=== PATIENT | female | born 1975 | race Caucasian/White ===

== ENCOUNTER 2023-08-07 06:41 | Day surgery (SDC) | payer BC, SELFPAY ==
[2023-08-07 07:00] VITALS: BP 130/87; PULSE 70; RESP 18; TEMP 36.3; O2SAT 97; BMI 31.0
[2023-08-07] MEDS: sodium chloride 0.9% 1,000 ML 30 ML IV (07:05)
[2023-08-07 07:11] LABS: OR HCG Qualitative Urine Negative (Negative)
--- NOTE | 2023-08-07 07:26 | ANES.PREANE2 ---
Pre-Anesthetic Assessment Height/Weight: Height 1.7 m Weight 89.811 kg Temp Pulse Resp BP Pulse Ox O2 Del Method 97.3 F L 70 18 130/87 97 Room Air 08/07/23 07:00 08/07/23 07:00 08/07/23 07:00 08/07/23 07:00 08/07/23 07:00 08/07/23 07:00 Preop Diagnosis: Screening Operation Date: 08/07/23 07:45 Proposed Procedures p Colonoscopy(Not Applicable) - Elías Molina DO Familial anesthetic complications: none Was Beta Kasey taken within 24 hours: N/A Was Clonidine taken within 24 hours: N/A Last intake: Intake Last Liquid Date 08/06/23 Last Liquid Time 23:55 Last Solid Date 08/05/23 Last Solid Time 18:30 Social No alcohol and No tobacco Exam alert, oriented x 3, clear to auscultation bilaterally and regular rate & rhythm Airway Submandibular: within normal limits Cervical ROM: within normal limits Mallampati: Class II Dentition: full Pulmonary None reported CV/HEM None reported None reported Hepatic None reported GI Gastroesophageal Reflux Disease (controlled) Metabolic None reported Musc/skel None reported Neuropsych None reported Anesthetic Plan ASA status: 1 Anesthesia: MAC Risk of > 500 ml blood loss (7ml/kg in children): No Medications/Allergies Home Medications Medication Instructions Recorded Confirmed Last Taken Type nmjgdoelnmct-Sq-cnal-minerals 18 1 tab PO DAILY 03/23/21 08/05/23 08/06/23 History mg-0.4 mg tablet (Maximum Daily Multivitamin) pantoprazole 40 mg tablet,delayed 40 mg PO BID 07/04/23 08/05/23 08/06/23 History release (Protonix) Allergies Allergy/AdvReac Type Severity Reaction Status Date / Time No Known Allergies Allergy Unverified 08/05/23 12:14 Current Medications Generic Name Dose Route Start Last Admin Trade Name Freq PRN Reason Stop Dose Admin Sodium Chloride 1,000 mls @ 30 mls/hr 08/07/23 07:00 08/07/23 07:05 Sodium Chloride 0.9% IV 30 mls/hr .Q24H KLAUS Administration PFSH Anesthesia Surgical History (Updated 07/04/23 @ 10:07 by Elías Molina DO) History of sleeve gastrectomy 2017 Hx laparoscopic cholecystectomy 2008 Hx of tubal ligation History of esophagogastroduodenoscopy (EGD) Family History Mother Diabetes Heart disease Social History Smoking and tobacco/nicotine status: never used tobacco/nicotine Data Anesthesia Cardiac Studies: No Data to Display
--- NOTE | 2023-08-07 08:15 | PM.HP ---
Providers/Chief Complaint Primary Care Provider: MAREK Uriarte Chief Complaint: K21.9, Z12.11 History of Present Illness Lisette Campbell is a 48 year old female Review of Systems General: Reports: 10 or more systems reviewed and unremarkable except in HPI and below Medications/Allergies Home Medications Medication Instructions Recorded Confirmed Last Taken Type kgeonxwuswoh-Ts-cziy-minerals 18 1 tab PO DAILY 03/23/21 08/05/23 08/06/23 History mg-0.4 mg tablet (Maximum Daily Multivitamin) pantoprazole 40 mg tablet,delayed 40 mg PO BID 07/04/23 08/05/23 08/06/23 History release (Protonix) Allergies Allergy/AdvReac Type Severity Reaction Status Date / Time No Known Allergies Allergy Unverified 08/05/23 12:14 PFSH Acute PFSH: Surgical History (Updated 07/04/23 @ 10:07 by Elías Molina DO) History of sleeve gastrectomy 2018 Hx laparoscopic cholecystectomy 2008 Hx of tubal ligation History of esophagogastroduodenoscopy (EGD) Family History Mother Diabetes Heart disease Social History Smoking and tobacco/nicotine status: never used tobacco/nicotine Vitals/I&O/Wt Last Vital Signs Temp 97.3 F L 08/07/23 07:00 Pulse 70 08/07/23 07:00 Resp 18 08/07/23 07:00 BP 130/87 08/07/23 07:00 Pulse Ox 97 08/07/23 07:00 O2 Del Method Room Air 08/07/23 07:00 Weight last 48 hrs Weight 198 lb A&P Assessment and plan (1) Colon cancer screening: Plan Colonoscopy Attestations Medical Necessity Statement*: Home Coding Level of Care Code Acute Code for Chg Fwd Diagnoses Colon cancer screening Z12.11
[2023-08-07 08:41] VITALS: BP 100/64; PULSE 62; RESP 12; TEMP 36.1; O2SAT 93
[2023-08-07 08:52] VITALS: BP 94/62; PULSE 52; RESP 16; O2SAT 96
[2023-08-07 09:02] VITALS: BP 115/82; PULSE 54; RESP 18; O2SAT 97
--- NOTE | 2023-08-07 14:54 | ANE.PACU2 ---
Inpatient post-anesthesia follow up: Airway intact: Yes Vital signs: Temperature 97.0 F Pulse Rate 54 Respiratory Rate 18 Blood Pressure 115/82 Pulse Oximetry 97 Oxygen Delivery Me thod Room Air Oxygen Flow Rate Fraction of Inspir ed Oxygen Hydration adequate: Yes Nausea and vomiting: No Pain level: 2 Mental status: Baseline
== END 2023-08-07 09:26 | disposition home or self-care (01) ==
PROVIDERS: Anesthesiology; PCP Nurse Practitioner Family; Visit Provider Surgery
PROC: 0DJD8ZZ Inspection of Lower Intestinal Tract, Via Natural or Artificial Opening Endoscopic (ICD-10-PCS; CPT 45378; principal; 2023-08-07 07:45)
DX: Z12.11 Encounter for screening for malignant neoplasm of colon (principal); K21.9 Gastro-esophageal reflux disease without esophagitis; D12.5 Benign neoplasm of sigmoid colon
CPT/HCPCS: 45385; 84703; 88305; J2704; J7030